=== PATIENT | male | born 1985 ===

== ENCOUNTER 2021-07-23 08:19 | Emergency (ER) | payer SELFPAY ==
[2021-07-23 08:30] VITALS: BP 126/87
[2021-07-23] MEDS ORDERED: LIDOCAINE 2%/EPINEPHRINE 1:200,000 VIAL (20 ML) INFILTRATI SCH (12:30)
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
[2021-07-23] MEDS ORDERED: TETANUS,DIPH,PERTUSS(ACELL) VACCINE 0.5 ML SYRINGE IM ONE (13:00)
== END 2021-07-23 13:02 ==
LOC: ED 08:19
DX: S91.312A Laceration without foreign body, left foot, initial encounter (principal); V89.2XXA Person injured in unspecified motor-vehicle accident, traffic, initial encounter; Y93.89 Activity, other specified; Y92.89 Other specified places as the place of occurrence of the external cause; Y99.8 Other external cause status
CPT/HCPCS: 12001; 73630; 90471; 90715; 99283; J3490